=== PATIENT | male | born 1980 | race Hispanic/Latino ===

== ENCOUNTER 2019-10-14 18:58 | Emergency (ER) | payer SELFPAY ==
[2019-10-14] MEDS ORDERED: cefTRIAXone\\ROCEPHIN 1 GM VIAL ONE (19:53)
[2019-10-14] MEDS ORDERED: Lidocaine 1% PF 5 ML VIAL ONE (19:53)
== END 2019-10-14 20:07 | disposition home or self-care (01) ==
LOC: ERS 18:58
DX: L02.416 Cutaneous abscess of left lower limb (principal); F17.210 Nicotine dependence, cigarettes, uncomplicated
CPT/HCPCS: 96372; 99282; J0696; J2001